=== PATIENT | female | born 1935 | race Caucasian/White ===

== ENCOUNTER 2019-06-24 07:39 | Day surgery (SDC) | payer MEDICARE, MEDICAID ==
[~2019-06-24] VITALS: Ht 157.5 cm; Wt 97.0 kg
[~2019-06-24 07:39] MED LIST: ACET65TA; ALLE25CA; ALLO10TA PO; AMAR1TAB6; ASPI81TA85 PO; ATOR1TAB21 PO; AVAP300T; CLONI1TA PO; COUM1TAB18; HYDR-4514 PO; HYDR25TA6; INSUHUMDS SC; INSULANT; JARD1TAB PO; LANTINJ4 SC; LIDOCAINE 1% MDV 20ML VIAL SQ PRN; LIPI20TA; LOSA50TA88 PO; LR 1,000 ML IV ONE; METF10004 PO; NORV5TAB; NORV5TAB PO; PANT40TA3 PO; TRAM50TA2; aldomet; triamcinolone
[2019-06-24] MEDS ORDERED: LIDOCAINE 5% (LIDODERM) PATCH As Ordered ONE (08:40)
[2019-06-24] MEDS ORDERED: METHYLENE BLUE 0.5% (5MG/ML) 10 ML AMP (PROVAYBLUE)(Q9968 PER 1MG) As Ordered ONE (08:40)
[2019-06-24] MEDS ORDERED: LIDOCAINE 5% (LIDODERM) PATCH TD ONE (09:00)
[2019-06-24] MEDS ORDERED: HumaLOG INSULIN (NovoLOG) PER UNIT SC ONE (11:00)
[2019-06-24] MEDS ORDERED: fentaNYL 250 MCG/5 ML INJECTION (J3010) As Ordered ONE (11:20)
[2019-06-24] MEDS ORDERED: propofoL 200 MG/20 ML VIAL As Ordered ONE (11:20)
[2019-06-24] MEDS ORDERED: dexameTHASONE 4 MG/ML 1ML VIAL (J1100) As Ordered ONE (11:20)
[2019-06-24] MEDS ORDERED: ROCURONIUM BROMIDE 50 MG/5 ML VIAL As Ordered ONE ×2 (11:20→13:00)
[2019-06-24] MEDS ORDERED: MIDAZOLAM INJ 2 MG/2 ML VIAL (J2250) As Ordered ONE (11:20)
[2019-06-24] MEDS ORDERED: LIDOCAINE 2% INJ 100 MG/5 ML SDV (FOR ANES.) As Ordered ONE (11:20)
[2019-06-24] MEDS ORDERED: ONDANSETRON 4MG/2ML VIAL (J2405) As Ordered ONE (11:21)
[2019-06-24] MEDS ORDERED: PHENYLEPHRINE INJ 10MG/ML VIAL (J2370) As Ordered ONE (12:35)
[2019-06-24] MEDS ORDERED: PHENYLephrine HCL 500 MCG/5 ML (100MCG/ML) SYRINGE (J2370) As Ordered ONE (13:01)
[2019-06-24] MEDS ORDERED: BUPIVACAINE HCL 0.25% 30ML VIAL As Ordered ONE (13:12)
[2019-06-24] MEDS ORDERED: SUGAMMADEX SODIUM 500 MG/5 ML VIAL (BRIDION) As Ordered ONE (13:14)
[2019-06-24] MEDS ORDERED: ACETAMINOPHEN 1000MG 100ML IV BTL (OFIRMEV) (J0131 PER 10MG) As Ordered ONE (14:08)
[2019-06-24] MEDS ORDERED: ESMOLOL INJ 100MG/10ML VIAL As Ordered ONE (14:51)
[2019-06-24] MEDS ORDERED: fentaNYL 100 MCG/2 ML INJECTION (J3010) IV PRN (15:00)
[2019-06-24] MEDS ORDERED: ONDANSETRON 4MG/2ML VIAL (J2405) IV PRN (15:00)
[2019-06-24] MEDS ORDERED: LR 1,000 ML IV SCH (15:00)
[2019-06-24] MEDS ORDERED: ACETAMINOPHEN TAB 650MG DOSE (2X325MG) PO PRN (15:15)
--- NOTE | 2019-06-24 15:22 | REP ---
Left Breast Lymphoscintigraphy The procedure was performed by CATRACHITA Epstein, under the direct supervision of Dr. Simpson. The risks and benefits of the procedure were explained to the patient and informed consent was obtained both verbally and written. Directly prior to the start of the procedure, a formal timeout was completed in the procedure room. Using topical anesthetic and sterile technique 1.015 mCi of technetium 99m filtered sulfur colloid was injected subdermally in eight fractionated periareolar injections. Images obtained 1 hour after injection show dominant axillary focus. Impression: 1. Left dominant axillary focus. Reviewed by CATRACHITA Philip 06/24/2019 12:39 P Electronically Signed by Jun Simpson MD 06/24/2019 03:13 P
[2019-06-24] MEDS ORDERED: ACETAMINOPH W/CODEINE #3 TAB UD PO PRN (15:30)
[2019-06-24] MEDS ORDERED: ACET1TAB16 PO (17:21)
[2019-06-24 17:55] VITALS: BP 152/72
--- NOTE | 2019-06-25 07:01 | RO ---
DATE OF PROCEDURE: 06/24/2019 PREOPERATIVE DIAGNOSIS: Infiltrating ductal carcinoma left breast. POSTOPERATIVE DIAGNOSIS: Infiltrating ductal carcinoma left breast. PROCEDURES PERFORMED: 1. Left breast/axilla sentinel lymph node biopsy. 2. Left partial mastectomy. SURGEON: Dr. Mario Alberto Mariscal [employer] APPRENTICE: Cris Dykes whose assistance was needed for retraction during the sentinel lymph node biopsy in particular, but also during the breast excision. ANESTHESIA: General. INDICATIONS FOR PROCEDURE: The patient is an 83-year-old woman who was noted on mammogram to have a small density in the upper outer quadrant of the left breast. She underwent additional imaging to include an ultrasound which confirmed two small nodules in the upper outer quadrant of the left breast. These were adjacent to each other. She underwent a needle biopsy which confirmed infiltrating ductal carcinoma with positive estrogen and progesterone receptors and a negative HER2/dottie receptor. She is now for a sentinel lymph node biopsy and partial mastectomy. OPERATIVE PROCEDURE: The patient was initially taken to the x-ray department where she underwent lymphoscintigraphy to identify left axillary nodes. She was brought to the operating room and placed on the table in a supine position. She was placed under general endotracheal anesthesia. Several small aliquots of methylene blue were infiltrated into the subcutaneous tissues just in the upper outer aspect of the areola. The axilla was examined with the Neoprobe and a site of activity was identified high in the axilla just below the hairline and this site was marked. The patient's left breast, chest wall and upper extremity were then prepped and draped in a sterile fashion. The Neoprobe was draped in a sleeve. Initially, the breast and axilla were examined and again an area of activity was identified high in the axilla just below the hairline. An approximately 3 cm transverse skin incision was made and deepened into the subcutaneous tissues. With continuing dissection guided by use of the Neoprobe, a single node was identified in the fairly superficial tissues in the axilla. This was excised with some attached fibrofatty tissue. This was examined out of the wound and the node appeared to comprise only a small portion of one end of the specimen. This was cut apart from the additional fibrofatty tissue. A 10 second gamma count was 3850. The remaining fibrofatty tissue had no significant tracer marking. The lymph node was sent as sentinel node #1 and the remaining tissue was subsequently sent as non sentinel tissue for permanent pathology. With further examination, a second node was identified. This was much deeper in the axilla and closer to the chest wall. The tissues were opened with a combination of sharp and blunt dissection and an additional node approximately 2 cm in maximal diameter was identified and removed. Several hemoclips were used for hemostasis. This second node had a gamma count in 10 seconds of 3793. This was sent for frozen section as sentinel node #2. Further inspection revealed no other additional significant marker activity within the axilla. The background count in 10 seconds was 57. The wound was irrigated and hemostasis was ensured. The subcutaneous tissues were approximated with some #3-0 Vicryl and the skin edges with a running subcuticular #4-0 Vicryl. Approximately 10 mL of 0.25% Marcaine were infiltrated into the wound edges of this incision. Attention was then turned to the partial mastectomy. The mass was palpable as a ridge running at about 2 o'clock position beginning about 2 cm from the edge of the areola and extending for 3-4 cm. This was fairly subtle so I inspected this area of the breast using the ultrasound and identified the lesion definitely as a solid nodule, actually paired solid nodules, corresponding to the palpable irregularity. An overlying skin ellipse was incised. This was approximately 6 cm in length x 3 cm in width. The skin was incised sharply and the dissection was then carried out using the cautery. The dissection was deepened through the breast tissue guided by primarily palpation. An adequate margin was taken on all sides of the palpable mass extending down almost to the pectoral fascia. The specimen was completely removed. The specimen was marked with the Vector margin marker system and then sent for permanent pathology. The wound was inspected for hemostasis and this was ensured with the electrocautery. The breast tissue was elevated superiorly and inferiorly at the level of the pectoral fascia to allow the breast tissue to be brought into apposition. The breast tissue was closed in the deeper portions of the wound with some #2-0 Vicryl. #3-0 Vicryl was used for the more superficial tissue and the skin edges were then approximated with a running subcuticular #4-0 Vicryl. Some additional 0.25% Marcaine was infiltrated along the partial mastectomy incision. Steri-Strips were applied to both incisions. A bulky bandage was applied. The patient tolerated the procedure well without apparent complication. She was awakened in the operating room, extubated and moved to the recovery room in stable condition.
== END 2019-06-24 18:11 | disposition home or self-care (01) ==
LOC: M SDC 07:39
PROVIDERS: ATTEND Surgery
DX: D05.12 Intraductal carcinoma in situ of left breast (principal); I10 Essential (primary) hypertension; E78.00 Pure hypercholesterolemia, unspecified; K21.9 Gastro-esophageal reflux disease without esophagitis; R94.31 Abnormal electrocardiogram [ECG] [EKG]; E11.9 Type 2 diabetes mellitus without complications; E03.9 Hypothyroidism, unspecified; M54.2 Cervicalgia; R51 Headache; Z91.81 History of falling; Z79.899 Other long term (current) drug therapy; Z79.82 Long term (current) use of aspirin; Z79.4 Long term (current) use of insulin
CPT/HCPCS: 19125; 38525; 78195; 88305; 88307; 88331; A9541; J0131; J1100; J2250; J2370; J2405; J3010; Q9968

== ENCOUNTER → 2019-07-23 | Outpatient (CLI) | payer MEDICARE, MEDICAID ==
[~2019-07-23] MED LIST changes: +ACET1TAB16 PO; +ELIQ5TAB PO; +LETR2.5T2 PO; -LIDOCAINE 1% MDV 20ML VIAL SQ PRN; -LR 1,000 ML IV ONE
--- NOTE | 2019-07-25 09:35 | RADONC ---
RADIATION ONCOLOGY CONSULTATION NOTE DATE OF CONSULTATION: 07/23/2019 This is a telemedicine visit. The patient was informed of the risks including security breech, technological failure, inability to perform a comprehensive physical exam which could delay or prevent an accurate diagnosis, and potential complications from treatment decisions rendered over a telemedicine platform. The patient understands and consented to the use of telehealth services. Phone only. CHART NUMBER: [id number]. DIAGNOSIS: Left breast cancer. STAGE: IA, T2N0M0, moderately differentiated, grade 2, ER positive, UT positive, HER2 negative. ECOG PERFORMANCE STATUS: 2. CONSULTATION NOTE: Ms. 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 HISTORY OF PRESENT ILLNESS: The patient was in the usual state of health who was found to have a lesion in the upper outer quadrant of her left breast. On 06/24/2019, the patient underwent lumpectomy and sentinel lymph node biopsy. Pathology revealed a 3.5 cm x 1.7 cm x 1 cm moderate to poorly differentiated mixed micropapillary and mucinous type invasive ductal carcinoma. The margins of resection were negative for malignancy. The closest margin was 3 mm. The patient did well since surgery and was seen by her medical oncologist, Dr. Rivera, who gave the patient letrozole. She is now presenting for discussion of possible external beam radiation therapy as a therapeutic option for conservative breast management. PAST MEDICAL HISTORY: The patient's past medical history is positive for diabetes, hypertension, osteoarthritis, hypercholesterolemia, gout, and DVTs. She has had a cholecystectomy in the past, as well as a right knee replacement and a tonsillectomy. ALLERGIES: The patient has no known drug allergies. SOCIAL HISTORY: The patient does not smoke cigarettes nor abuse alcohol. FAMILY HISTORY: The patient's family history is unknown, as the patient was adopted. REVIEW OF SYSTEMS: The patient's review of systems is positive for physical limitations secondary to her arthritis. She has transportation difficulties. PHYSICAL EXAMINATION: Physical examination was deferred as per COVID-19 precautions. This was a telephone interview. ASSESSMENT: I had a lengthy discussion with this patient and her daughter, Zulema. I discussed in detail the potential benefits, as well as possible acute and chronic sequelae of external beam radiation therapy. We discussed logistics of treatment planning, simulation, subsequent fractionated daily radiation treatments. I explained to the patient and her daughter, as well, the reasoning behind offering radiation and the NCCN guidelines. We did discuss that the NCCN guidelines report that this treatment would be optional for a patient over 70 years old with a T1 lesion, which was ER/UT positive being treated with hormonal therapy. This patient, however, has a larger lesion which is T2. Of course on the other side of that issue, she is not over 70, but she is actually over 83 with comorbidities and a very difficult time with transportation. The patient and her daughter are aware that this treatment is prophylactic and preventative in nature. They are aware of the increased risks of local failure over time if she does not undertake this treatment. I made them aware, as well, of the need for close followup and intervention should this recur locally. The letrozole treatment should keep her in good stead for the immediate future. I have given her my cell phone number, and I am available to the patient and her daughter should they have any questions or change their mind in the meantime. In addition, I have offered to set them up with a re-consultation in 2-3 months. In light of the present COVID-19 crisis, it is not unreasonable in a patient with an early-stage breast cancer which is estrogen receptor and progesterone receptor positive being treated with letrozole to withhold radiation for a few months until the situation stabilizes. At this time after lengthy discussion more than 30 minutes, the patient and her daughter have decided to continue with their followup with her medical oncologist, Dr. Rivera. They will continue with the letrozole and have agreed to routine mammography and breast examinations in the meantime. Once again, I gave the patient my office number as well as cell phone number and offered to follow them here, as well, if they so desire. Unfortunately, the patient lives more than an hour away, which would be a 2-hour round trip, and there are difficulties with transportation, as the daughter may not be available on a daily basis. In light of all these issues, I think it reasonable to set up routine followup with her medical oncologist, Dr. Rivera. We are available to them as noted above. Thank you for allowing us to participate in the care of this very pleasant woman. If I could be of any further assistance, please free to contact me at any time. As always, warm regards. Remy Stern cc: MD Mike Guidry, DO
== END ==
LOC: M ONCR 13:05
PROVIDERS: ATTEND Radiology Radiation Oncology
DX: C50.912 Malignant neoplasm of unspecified site of left female breast (principal)